=== PATIENT | male | born 1990 | race Caucasian/White ===

== ENCOUNTER 2017-07-24 02:47 | Emergency (ER) | payer SELFPAY ==
[~2017-07-24] VITALS: Ht 180.3 cm; Wt 84.4 kg
[2017-07-24] MEDS ORDERED: KETOROLAC 30 MG/ML VIAL. ONE (03:23)
[2017-07-24] MEDS ORDERED: KETOROLAC 30 MG/ML VIAL. IV ONE (04:00)
[2017-07-24] MEDS ORDERED: BENZONATATE 100 MG CAPSULE. PO ONE (04:00)
[2017-07-24] MEDS ORDERED: IV NORMAL SALINE 1,000ML 1,000 ML IV ONE (04:00)
[2017-07-24] MEDS ORDERED: ALBU8.5H8 INH (04:44)
[2017-07-24] MEDS ORDERED: BENZ100C PO (04:44)
--- NOTE | 2017-07-24 04:44 | PHYS DOC ---
Past History Past Medical History: Other Past Surgical History: No Surgical History Alcohol Use: None Drug Use: Marijuana Adult General Chief Complaint Chief Complaint: COUGH HPI HPI Patient is a 26 year old male who presents with cough. Patient reports 1 week history of dry cough. He reports nasal congestion, generalized headache, muscle pain with coughing only. He denies fevers/chills, vision changes, sore throat, chest pain, nausea, vomiting, abdominal pain, diarrhea. Previously healthy. Recently moved here from [place]. Nonsmoker. Review of Systems Review of Systems Constitutional: Denies fever or chills Eyes: Denies change in visual acuity HENT: Reports nasal congestion, denies sore throat Respiratory: Reports cough, denies shortness of breath Cardiovascular: Denies chest pain GI: Denies abdominal pain, nausea, vomiting, or diarrhea Musculoskeletal: Denies back pain or joint pain Integument: Denies rash Neurologic: Reports headache, denies focal weakness or sensory changes All other systems were reviewed and found to be within normal limits, except as documented in this note. Current Medications Current Medications Current Medications Medications (Trade) Dose Ordered Sig/Jason Start Time Stop Time Status Last Admin Dose Admin Benzonatate (Tessalon Perle) 100 mg 1X ONCE 07/24/17 04:00 07/24/17 04:01 DC 07/24/17 04:01 100 MG Ketorolac Tromethamine (Toradol) 30 mg 1X ONCE 07/24/17 04:00 07/24/17 04:01 DC 07/24/17 04:01 30 MG Sodium Chloride 1,000 ml @ 1,000 mls/hr 1X ONCE 07/24/17 04:00 07/24/17 04:59 07/24/17 04:01 1,000 MLS/HR Allergies Allergies Allergies Coded Allergies Type Severity Reaction Last Updated Verified No Known Drug Allergies 07/24/17 No Physical Exam Physical Exam Constitutional: Well developed, well nourished, no acute distress, non-toxic appearance. HENT: Normocephalic, atraumatic, bilateral external ears normal, oropharynx moist, no tonsillar enlargement or exudate, nose normal. Eyes: conjunctiva normal, no discharge. Neck: supple, no stridor. no meningismus Cardiovascular: tachycardic, regular, no murmurs, no edema. Lungs & Thorax: LCTAB, no wheezing, no respiratory distress. Abdomen: soft, nontender, nondistended. Skin: Warm, dry, no erythema, no rash. Back: No tenderness. Extremities: No tenderness, no edema. no calf tenderness or swelling. Neurologic: Alert and oriented X 3, no focal deficits noted. Psychologic: Affect normal, judgement normal, mood normal. Current Patient Data Vital Signs Vital Signs Date Time Temp Pulse Resp B/P (MAP) Pulse Ox O2 Delivery O2 Flow Rate FiO2 07/24/17 02:47 98.8 109 20 96 Room Air EKG EKG [] Radiology/Procedures Radiology/Procedures [] Course & Med Decision Making Course & Med Decision Making Pertinent Labs and Imaging studies reviewed. (See chart for details) The patient presents with cough. Oxygen saturation normal, afebrile, lungs are clear on exam. Mildly tachycardic upon arrival. Offered CXR & IV fluids. The patient states he doesn't want x-ray but is willing to receive fluids & prescriptions for meds for supportive care. With duration of cough, CXR not inappropriate, but overall suspect viral URI with mild dehydration rather than pneumonia at this time. Patient received 1L NS & heart rate improved to 80s, gave prescriptions for albuterol & tessalon perles. Recommend rest, hydration, tylenol/ibuprofen for pain or fever, try mucinex, use humidifier, follow up with PCP if not improving in 2-3 days. Come back for high fever, severe shortness of breath or chest pain, uncontrolled vomiting, any otherwise worsening condition. Discharged home in stable & improved condition. [] Dragon Disclaimer Dragon Disclaimer This electronic medical record was generated, in whole or in part, using a voice recognition dictation system. Departure Departure: Impression: Primary Impression: Upper respiratory infection Disposition: HOME, SELF-CARE Condition: STABLE Referrals: PCP,NO (PCP) Patient Instructions: Upper Respiratory Infection, Adult, [id number] Additional Instructions: You were seen in the emergency department today for upper respiratory infection. We offered chest x-ray to evaluate for pneumonia which you preferred not to have. Please rest, drink fluids to stay hydrated, take tylenol or ibuprofen for pain/fever, continue mucinex, try albuterol inhaler & tessalon perles for cough, use a humidifier. Follow up with a primary care doctor if not improving in 2-3 days. Viral cough may last up to 3 weeks. Come back for high fever, severe pain, uncontrolled vomiting, severe shortness of breath, any otherwise worsening condition. Scripts Benzonatate (TESSALON PERLE) 100 Mg Capsule 1 CAP PO TID, #21 CAP Prov: MONIKA ARAGON MD 07/24/17 Albuterol Sulfate (PROAIR HFA INHALER) 8.5 Gm Hfa.aer.ad 1 PUFF INH PRN Q6HRS Y for SHORTNESS OF BREATH, #1 INHALER 0 Refills Prov: MONIKA ARAGON MD 07/24/17 MONIKA ARAGON MD Jul 24, 2017 04:44
[2017-07-24 04:48] VITALS: BP 129/67
== END 2017-07-24 04:53 | disposition home or self-care (01) ==
LOC: ER 02:47
DX: J06.9 Acute upper respiratory infection, unspecified (principal); F12.10 Cannabis abuse, uncomplicated
CPT/HCPCS: 96361; 96374; 99284; J1885; J7030

== ENCOUNTER 2017-08-17 03:35 | Emergency (ER) | payer SELFPAY ==
[~2017-08-17] VITALS: Ht 180.3 cm; Wt 80.4 kg
[~2017-08-17 03:35] MED LIST: ALBU8.5H8 INH; BENZ100C PO
--- NOTE | 2017-08-17 03:57 | ED.ADGEN ---
Past History Past Medical History: Anxiety, Bipolar, Other Past Surgical History: No Surgical History Alcohol Use: None Drug Use: Marijuana Adult General Chief Complaint Chief Complaint "... I just did a line of meth.. and have had chest pain constant.. I did about $10.00 worth about 2 hours ago...I keep going back to using.. I just can't quit.. I ve been of up 5 days... but it is everywhere here in [place]... I moved up here from [place] to try get away from it .. but it is even worse here... " HPI HPI Patient is a 27 year old male Drug Response Dx. who presents with central chest pain after smoking line of meth. Pain has been constant and had periodic coughing spasm. Pt. here two weeks ago for similar presentation and was dx. as bronchitis. Review of Systems Review of Systems Constitutional: Denies fever or chills [] Eyes: Denies change in visual acuity, redness, or eye pain [] HENT: Denies nasal congestion or sore throat [] Respiratory: Hx. cough and chest pain. Cardiovascular: No additional information not addressed in HPI [] GI: Denies abdominal pain, nausea, vomiting, bloody stools or diarrhea [] : Denies dysuria or hematuria [] Musculoskeletal: Denies back pain or joint pain [] Integument: Denies rash or skin lesions [] Neurologic: Denies headache, focal weakness or sensory changes [] Endocrine: Denies polyuria or polydipsia [] All other systems were reviewed and found to be within normal limits, except as documented in this note. Family History Family History Non-contributory Current Medications Current Medications Current Medications Medications (Trade) Dose Ordered Sig/Jason Start Time Stop Time Status Last Admin Dose Admin Aspirin (Children'S Aspirin) 324 mg 1X ONCE 08/17/17 04:15 08/17/17 04:16 DC 08/17/17 04:15 324 MG Sodium Chloride 1,000 ml @ 1,000 mls/hr Q1H 08/17/17 04:15 08/17/17 05:14 DC 08/17/17 04:15 1,000 MLS/HR Allergies Allergies Allergies Coded Allergies Type Severity Reaction Last Updated Verified No Known Drug Allergies 07/24/17 No Physical Exam Physical Exam Constitutional: in acute emotional distress, non-toxic appearance. [] HENT: Normocephalic, atraumatic, bilateral external ears normal, oropharynx moist, no oral exudates, nose mild injection. Eyes: PERRLA, EOMI, conjunctiva normal, no discharge. [] Neck: Normal range of motion, no tenderness, supple, no stridor. [] Cardiovascular:Heart rate regular rhythm, no murmur [] Lungs & Thorax: Bilateral breath sounds equal with scattered wheezes on auscultation [] Abdomen: Bowel sounds normal, soft, no tenderness, no masses, no pulsatile masses. [] Skin: Warm, dry, no erythema, no rash. [] Back: No tenderness, no CVA tenderness. [] Extremities: No tenderness, no cyanosis, no clubbing, ROM intact, no edema. [] Neurologic: Alert and oriented X 3, normal motor function, normal sensory function, no focal deficits noted. [] Psychologic: Affect anxious, judgement normal, mood normal. [] Current Patient Data Vital Signs Vital Signs Date Time Temp Pulse Resp B/P (MAP) Pulse Ox O2 Delivery O2 Flow Rate FiO2 08/17/17 05:20 91 16 94 08/17/17 04:59 119/64 (82) 08/17/17 03:45 98.1 08/17/17 03:45 Room Air Lab Results Laboratory Tests Test 08/17/17 03:45 08/17/17 03:58 08/17/17 06:00 White Blood Count 8.9 x10^3/uL (4.0-11.0) Red Blood Count 4.61 x10^6/uL (4.30-5.70) Hemoglobin 13.0 g/dL (13.0-17.5) Hematocrit 37.4 % (39.0-53.0) L Mean Corpuscular Volume 81 fL (79-100) Mean Corpuscular Hemoglobin 28 pg (25-35) Mean Corpuscular Hemoglobin Concent 35 g/dL (31-37) Red Cell Distribution Width 14.8 % (11.5-14.5) H Platelet Count 289 x10^3/uL (140-400) Neutrophils (%) (Auto) 43 % (31-73) Lymphocytes (%) (Auto) 47 % (24-48) Monocytes (%) (Auto) 7 % (0-9) Eosinophils (%) (Auto) 2 % (0-3) Basophils (%) (Auto) 1 % (0-3) Neutrophils # (Auto) 3.8 x10^3uL (1.8-7.7) Lymphocytes # (Auto) 4.2 x10^3/uL (1.0-4.8) Monocytes # (Auto) 0.6 x10^3/uL (0.0-1.1) Eosinophils # (Auto) 0.2 x10^3/uL (0.0-0.7) Basophils # (Auto) 0.1 x10^3/uL (0.0-0.2) Prothrombin Time 11.1 SEC (9.4-11.4) Prothrombin Time INR 1.1 (0.9-1.1) PTT 27 SEC (23-33) D-Dimer (Alia) 0.37 mg/L (0.00-0.50) Sodium Level 139 mmol/L (136-145) Potassium Level 3.8 mmol/L (3.5-5.1) Chloride Level 103 mmol/L (98-107) Carbon Dioxide Level 28 mmol/L (21-32) Anion Gap 8 (6-14) Blood Urea Nitrogen 7 mg/dL (8-26) L Creatinine 0.9 mg/dL (0.7-1.3) Estimated GFR (Cockcroft-Gault) 102.8 Glucose Level 109 mg/dL (70-99) H Calcium Level 8.7 mg/dL (8.5-10.1) Magnesium Level 2.3 mg/dL (1.8-2.4) Total Bilirubin 0.4 mg/dL (0.2-1.0) Direct Bilirubin 0.1 mg/dL (0.0-0.2) Aspartate Amino Transferase (AST) 41 U/L (15-37) H Alanine Aminotransferase (ALT) 83 U/L (16-63) H Alkaline Phosphatase 90 U/L (46-116) Creatine Kinase 87 U/L (39-308) Creatine Kinase MB (Mass) 0.5 ng/mL (0.0-3.6) Creatine Kinase MB Relative Index 0.6 % (0-4) Troponin I Quantitative < 0.017 ng/mL (0-0.055) KJ-Dmu-D-Type Natriuretic Peptide 15 pg/mL (0-124) Total Protein 7.4 g/dL (6.4-8.2) Albumin 3.7 g/dL (3.4-5.0) Lipase 146 U/L (73-393) Thyroid Stimulating Hormone (TSH) 1.617 uIU/mL (0.358-3.740) Hepatitis A IgM Antibody Negative (Negative) Hepatitis B Surface Antigen Negative (Negative) Hepatitis B Core IgM Antibody Negative (Negative) Hepatitis C Antibody <0.1 s/co ratio HIV (1&2) Antibody Non reactive (Non Reactive) Urine Opiates Screen Neg (NEG) Urine Methadone Screen Neg (NEG) Urine Barbiturates Neg (NEG) Urine Phencyclidine Screen Neg (NEG) Urine Amphetamine/Methamphetamine Pos (NEG) Urine Benzodiazepines Screen Neg (NEG) Urine Cocaine Screen Neg (NEG) Urine Cannabinoids Screen Neg (NEG) Urine Ethyl Alcohol Neg (NEG) Urine Collection Type Unknown Urine Color Yellow Urine Clarity Clear Urine pH 5.5 Urine Specific Finley 1.010 Urine Protein Neg (NEG-TRACE) Urine Glucose (UA) Neg mg/dL (NEG) Urine Ketones (Stick) Neg mg/dL (NEG) Urine Blood Neg (NEG) Urine Nitrite Neg (NEG) Urine Bilirubin Neg (NEG) Urine Urobilinogen Dipstick 0.2 mg/dL (0.2 mg/dL) Urine Leukocyte Esterase Neg (NEG) Urine RBC 0 /HPF (0-2) Urine WBC 0 /HPF (0-4) Urine Squamous Epithelial Cells Occ /LPF Urine Bacteria 0 /HPF (0-FEW) EKG EKG My interpretation EKG shows a sinus rhythm at 84 bpm. There is no findings acute STEMI with contralateral changes.[] Radiology/Procedures Radiology/Procedures My interpretation of chest x-ray shows no acute cardiopulmonary findings. Course & Med Decision Making Course & Med Decision Making Pertinent Labs and Imaging studies reviewed. (See chart for details) Patient encouraged to stop meth amphetamine use. Patient encouraged follow-up health center. Patient take daily aspirin. Patient advised stop smoking . Patient follow-up primary care. Patient return if any concerns. [] Final Impression Final Impression 1. Bronchitis 2. Reactive Air way- secondary smoking Meth 3. Hx. Bipolar Disorder[] 4. History of polysubstance abuse 5. Elevated LFTs Problems: Dragon Disclaimer Dragon Disclaimer This electronic medical record was generated, in whole or in part, using a voice recognition dictation system. SUKH IRENE MD Aug 17, 2017 03:57
[2017-08-17] MEDS ORDERED: IV NORMAL SALINE 1,000ML 1,000 ML IV SCH (04:15)
[2017-08-17] MEDS ORDERED: ASPIRIN 81 MG TAB.CHEW PO ONE (04:15)
[2017-08-17 04:38] LABS: BASO # 0.1 x10^3/uL (0.0-0.2); BASO % 1 % (0-3); EOS # 0.2 x10^3/uL (0.0-0.7); EOS % 2 % (0-3); HEMATOCRIT 37.4 % (39.0-53.0); LYMPH # 4.2 x10^3/uL (1.0-4.8); LYMPH % 47 % (24-48); MEAN CORPUSCULAR HEMOGLOBIN 28 pg (25-35); MEAN CORPUSCULAR HGB CONC 35 g/dL (31-37); MEAN CORPUSCULAR VOLUME 81 fL (79-100); MONO # 0.6 x10^3/uL (0.0-1.1); MONO % 7 % (0-9); NEUT # 3.8 x10^3uL (1.8-7.7); NEUT % 43 % (31-73); PLATELET COUNT 289 x10^3/uL (140-400); RED BLOOD COUNT 4.61 x10^6/uL (4.30-5.70); RED CELL DISTRIBUTION WIDTH 14.8 % (11.5-14.5); WHITE BLOOD COUNT 8.9 x10^3/uL (4.0-11.0)
[2017-08-17 04:59] VITALS: BP 119/64
[2017-08-17 05:07] LABS: ALBUMIN 3.7 g/dL (3.4-5.0); CALCIUM 8.7 mg/dL (8.5-10.1); CREATININE 0.9 mg/dL (0.7-1.3); DIRECT BILIRUBIN 0.1 mg/dL (0.0-0.2); GFR 102.8; MAGNESIUM 2.3 mg/dL (1.8-2.4); POTASSIUM 3.8 mmol/L (3.5-5.1); TOTAL BILIRUBIN 0.4 mg/dL (0.2-1.0); TOTAL PROTEIN 7.4 g/dL (6.4-8.2)
[2017-08-17 06:18] LABS: BARBITURATES NEG (NEG); BENZODIAZEPINES NEG (NEG); CANNABINOIDS NEG (NEG); COCAINE NEG (NEG); METHADONE NEG (NEG); OPIATES NEG (NEG); PHENCYCLIDINE NEG (NEG)
[2017-08-17 06:31] LABS: AMPHETAMINE/METHAMPHETAMINE POS (NEG)
[2017-08-17 06:34] LABS: BACTERIA,URINE 0 /HPF (0-FEW); BILIRUBIN,URINE NEG (NEG); CLARITY,URINE CLEAR; COLOR,URINE YELLOW; GLUCOSE,URINE NEG (NEG); NITRITE,URINE NEG (NEG); RBC,URINE 0 /HPF (0-2); SQUAMOUS EPITHELIAL CELL,UR OCC /LPF; UROBILINOGEN,URINE 0.2 mg/dL (0.2 mg/dL); WBC,URINE 0 /HPF (0-4)
--- NOTE | 2017-08-17 07:37 | RAD ---
EXAM: Chest, 2 views. HISTORY: Left-sided chest pain. COMPARISON: None. FINDINGS: Frontal and lateral views of the chest are obtained. There is no infiltrate, effusion or pneumothorax. The heart is normal in size. IMPRESSION: No acute pulmonary finding.
--- NOTE | 2017-08-17 13:30 | EKG ---
[address] [address] Test Date: 2017-08-17 Test Time: 03:56:25 Pat Name: ROSANA BANSAL Department: Room: Gender: M Rn Travel: CATINA : 1990 Requested By: SUKH IRENE Order Number: [id number] Reading MD: Arben Masters MD Measurements Intervals [place] Rate: 84 P: 59 MA: 160 QRS: 68 QRSD: 94 T: 36 QT: 348 QTc: 414 Interpretive Statements SINUS RHYTHM Electronically Signed On 08-25-2017 0:01:52 ZINC MINER BLASTING by Arben Masters MD
[2017-08-18 16:09] LABS: HCV ANTIBODY <0.1 s/co ratio (0.0-0.9); HEP A IGM ABDY Negative (Negative)
== END 2017-08-17 06:33 | disposition home or self-care (01) ==
LOC: ER 03:35
DX: J45.909 Unspecified asthma, uncomplicated (principal); F31.9 Bipolar disorder, unspecified; R79.89 Other specified abnormal findings of blood chemistry; F12.10 Cannabis abuse, uncomplicated; F19.10 Other psychoactive substance abuse, uncomplicated; F41.9 Anxiety disorder, unspecified; F15.90 Other stimulant use, unspecified, uncomplicated
CPT/HCPCS: 36415; 71046; 80048; 80074; 80076; 80307; 81001; 82553; 83690; 83735; 83880; 84443; 84484; 85025; 85379; 85610; 85730; 86703; 93005; 96360; 96361; 99285-25; G0479; J7030

== ENCOUNTER 2017-09-02 16:49 | Emergency (ER) | payer SELFPAY ==
[~2017-09-02] VITALS: Ht 180.3 cm; Wt 80.4 kg
[2017-09-02 16:49] VITALS: BP 143/79
--- NOTE | 2017-09-02 17:29 | PHYS DOC ---
General Chief Complaint: DRUG ABUSE Stated Complaint: DRUG ABUSE Time Seen by MD: 17:27 Source: patient, EMS Exam Limitations: no limitations Problems: History of Present Illness Initial Comments Patient is a 22-year-old male brought to the ED by EMS with report that he wanted to seek inpatient drug rehabilitation. EMS states the patient has history of methamphetamine abuse that he recently used and requested transport to the ED to arrange for inpatient drug rehabilitation. On arrival ED vital signs stable slightly hypertensive the patient is calm alert and cooperative. Patient states he's been using methamphetamine off and on since March of last year. States he uses nearly daily now and his last use was approximately 3 hours ago. He smokes denies IV drug use but does admit to high risk sexual behavior with unprotected intercourse and he offers that he is homosexual. He had an HIV test done here reportedly 2 weeks ago and he's been very anxious about those results. After talking with the patient he admits that the main reason he wanted to come was to get the results of his HIV test. It would also like information about the guidance Center as he plans to follow up there tomorrow morning. He denies any complaints currently other than regret regarding choices in the past to start smoking methamphetamine. He is greatly relieved to find that his HIV test was nonreactive. He denies any other complaints and requests discharge home without any workup. On my evaluation he is alert and oriented 3 and actually does not appear to be under the influence of any substances. Timing/Duration: other Severity: severe Modifying Factors: improves with other Associated Symptoms: denies symptoms Allergies: Coded Allergies: No Known Drug Allergies (Unverified , 07/24/17) Past Medical History Medical History: other (bipolar, anxiety) Surgical History: noncontributory Social History Smoker: less than 1 pack/day Alcohol: none Drugs: marijuana (methamphetamine) Review of Systems Constitutional: denies chills, denies fever EENTM: denies blurred vision, denies ear pain, denies mouth pain Respiratory: denies shortness of breath, denies wheezing Cardiovascular: denies chest pain, denies palpitations, denies syncope Gastrointestinal: denies abdominal pain, denies nausea, denies vomiting Genitourinary: denies discharge, denies dysuria Musculoskeletal: denies back pain, denies muscle pain, denies neck pain Psychiatric/Neurological: see HPI Immunological/Allergic: see HPI Physical Exam General Appearance: mild distress (patient on arrival regarding HIV result) Eyes: bilateral eye normal inspection, bilateral eye PERRL, bilateral eye EOMI Ear, Nose, Throat: hearing grossly normal, normal ENT inspection, normal pharynx Neck: full range of motion, supple Respiratory: normal breath sounds, no respiratory distress Cardiovascular: normal peripheral pulses, regular rate, rhythm Neurologic/Psychiatric: 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 He was advised to follow-up with for further testing as an outpatient. Guidance Center materials given. Patient intends to call someone to pick him up he continues to be alert and oriented 3 and aside from his past drug choices current judgment and insight appear to be intact. He exhibits UCAR capacity and although reportedly smoked methamphetamine 3 hours ago his heart rate is normal and he does not appear to be affected. I offered him a medical screening evaluation and advised we would call and see if we can find an inpatient rehabilitation facility patient declines stating he will follow-up with the guidance center. I discussed signs and symptoms to monitor as well as indications for urgent return to the department. I discussed methamphetamine abuse and adverse effects and need for cessation/rehabilitation. Patient's questions were answered to his satisfaction and he expressed agreement and understanding with the treatment plan. I stressed the importance of barrier protection with all sexual activity. Departure Time of Disposition: 17:27 Disposition: 01 HOME, SELF-CARE Diagnosis: anxiety, substance abuse, high risk sexual behavio Condition: STABLE Patient Instructions: Methamphetamine Abuse, Complications, Safe Sex Additional Instructions: Please review the patient education materials given by ED staff. Discontinue methamphetamine abuse. Barrier protection with all sexual activity. ED staff will provide you with information regarding the guidance center. They do have walk-in hours in the morning, it is advised that he show up approximately 30 minutes before they open to ensure you are seen that day. Follow-up with a doctor and return to the ED as needed. WILLIAM REESE DO Sep 02, 2017 17:29
== END 2017-09-02 17:30 | disposition home or self-care (01) ==
LOC: ER 16:49
DX: F15.10 Other stimulant abuse, uncomplicated (principal); F41.9 Anxiety disorder, unspecified; F31.9 Bipolar disorder, unspecified; F12.10 Cannabis abuse, uncomplicated; F17.200 Nicotine dependence, unspecified, uncomplicated; Z72.52 High risk homosexual behavior
CPT/HCPCS: 99281; 99283

== ENCOUNTER 2017-09-04 03:22 | Emergency (ER) | payer SELFPAY ==
[~2017-09-04] VITALS: Ht 180.3 cm; Wt 80.4 kg
[2017-09-04 03:25] VITALS: BP 152/85
--- NOTE | 2017-09-04 03:43 | PHYS DOC ---
Past History Past Medical History: Anxiety, Bipolar, Other Past Surgical History: No Surgical History Alcohol Use: None Drug Use: Marijuana, Methamphetamine Adult General Chief Complaint Chief Complaint: not feeling anything HPI HPI 27-year-old male patient states he doesn't feel any emotion that is not usual for him. He states he had stable vital signs and normal exam during his previous ER visit and was came by ambulance 2 days ago with the same problem and was discharged home with instruction to follow-up with [facility]. Patient denies suicidal and homicidal ideation and hallucination and states he uses methamphetamine every day. Review of Systems Review of Systems Constitutional: Denies fever or chills [] Eyes: Denies change in visual acuity, redness, or eye pain [] HENT: Denies nasal congestion or sore throat [] Respiratory: Denies cough or shortness of breath [] Cardiovascular: No additional information not addressed in HPI [] GI: Denies abdominal pain, nausea, vomiting, bloody stools or diarrhea [] : Denies dysuria or hematuria [] Musculoskeletal: Denies back pain or joint pain [] Integument: Denies rash or skin lesions [] Neurologic: Denies headache, focal weakness or sensory changes [] Endocrine: Denies polyuria or polydipsia [] All other systems were reviewed and found to be within normal limits, except as documented in this note. Allergies Allergies Allergies Coded Allergies Type Severity Reaction Last Updated Verified No Known Drug Allergies 07/24/17 No Physical Exam Physical Exam Constitutional: Well nourished, no acute distress, non-toxic appearance. [] HENT: Normocephalic, atraumatic, bilateral external ears normal, oropharynx moist, no oral exudates, nose normal. [] Eyes: PERRLA, EOMI, conjunctiva normal, no discharge. [] Neck: Normal range of motion, no tenderness, supple, no stridor. [] Cardiovascular:Heart rate regular rhythm, no murmur [] Lungs & Thorax: Bilateral breath sounds clear to auscultation [] Abdomen: Bowel sounds normal, soft, no tenderness, no masses, no pulsatile masses. [] Skin: Warm, dry, no erythema, no rash. [] Back: No tenderness, no CVA tenderness. [] Extremities: No tenderness, no cyanosis, no clubbing, ROM intact, no edema. [] Neurologic: Alert and oriented X 3, normal motor function, normal sensory function, no focal deficits noted. [] Psychologic: Not suicidal or homicidal EKG EKG [] Radiology/Procedures Radiology/Procedures [] Course & Med Decision Making Course & Med Decision Making Evaluation of patient in ER showed 27-year-old female patient presented to ER at 3:30 AM with complaining of not feeling any emotion. Patient denies suicidal and homicidal ideation or hallucination. Patient instructed to follow-up with guided Center and do not use methamphetamine. Dragon Disclaimer Dragon Disclaimer This electronic medical record was generated, in whole or in part, using a voice recognition dictation system. Departure Departure: Impression: Primary Impression: Methamphetamine abuse Additional Impression: Feared condition not demonstrated Disposition: 01 HOME, SELF-CARE Condition: STABLE Referrals: PCP,NO (PCP) Patient Instructions: Methamphetamine Abuse, Complications Additional Instructions: Follow up with guided Center Problem Qualifiers TARA PATEL MD Sep 04, 2017 03:43
== END 2017-09-04 03:47 | disposition home or self-care (01) ==
LOC: ER 03:22
DX: F15.10 Other stimulant abuse, uncomplicated (principal); F12.10 Cannabis abuse, uncomplicated; Z71.1 Person with feared health complaint in whom no diagnosis is made; F41.9 Anxiety disorder, unspecified; F31.9 Bipolar disorder, unspecified
CPT/HCPCS: 99281

== ENCOUNTER 2017-09-15 03:36 | Emergency (ER) | payer SELFPAY ==
[~2017-09-15] VITALS: Ht 180.3 cm; Wt 81.6 kg
[2017-09-15 03:44] VITALS: BP 143/88
[2017-09-15] MEDS ORDERED: 0.9 % SODIUM CHLORIDE 10 ML DISP.SYRIN. IV PRN (04:00)
[2017-09-15] MEDS ORDERED: ONDANSETRON PF 4 MG/2 ML VIAL. IV ONE (04:00)
[2017-09-15] MEDS ORDERED: IV NORMAL SALINE 1,000ML 1,000 ML IV SCH (04:00)
--- NOTE | 2017-09-15 04:01 | PHYS DOC ---
Past History Past Medical History: No Pertinent History Past Surgical History: No Surgical History Alcohol Use: None Drug Use: Marijuana, Methamphetamine Adult General Chief Complaint Chief Complaint: NAUSEA/VOMITING/DIARRHEA HPI HPI He is a pleasant otherwise healthy 27-year-old male who is self-proclaimed methamphetamine abuser who is wanting to be clean and sober. He was to go to [facility] to their facility as an outpatient but wants to go with a clear head and be off methamphetamines for at least a few days. He began 2 days ago and attempted to stop using his methamphetamines which he's been using since March 2017. He has some nausea and vomiting 4-5 episodes daily for last 2 days and some mild diarrhea and loose stools. He denies any fevers or chills. He believes that every time he tries to drink something he gets nauseated and will potentially vomit it up. He denies any chest pain, denies any shortness of breath, denies any fevers or chills. 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 Patient does occasionally smoke a cigar for cigarette and does not drink alcohol Review of Systems Review of Systems Constitutional: Denies fever or chills [] Eyes: Denies change in visual acuity, redness, or eye pain [] HENT: Denies nasal congestion or sore throat [] Respiratory: Denies cough or shortness of breath [] Cardiovascular: No additional information not addressed in HPI [] GI: Denies abdominal pain, positive for nausea and vomiting nonbilious nonbloody positive for diarrhea nonmucoid nonbloody : Denies dysuria or hematuria [] Musculoskeletal: Denies back pain or joint pain [] Integument: Denies rash or skin lesions [] Neurologic: Denies headache, focal weakness or sensory changes [] Endocrine: Denies polyuria or polydipsia [] All other systems were reviewed and found to be within normal limits, except as documented in this note. Allergies Allergies Allergies Coded Allergies Type Severity Reaction Last Updated Verified No Known Drug Allergies 07/24/17 No Physical Exam Physical Exam Of the vital signs recorded the chart at this time within normal limits Constitutional: Well developed, well nourished, no acute distress, non-toxic appearance. Patient is mildly anxious but appropriate no pallor erection no diaphoresis [] HENT: Normocephalic, atraumatic, bilateral external ears normal, oropharynx mildly dry with mild erythema but no tonsillar hypertrophy, no oral exudates, nose normal. [] Eyes: PERRLA, EOMI, conjunctiva normal, no discharge. [] Neck: Normal range of motion, no tenderness, supple, no stridor. [] Cardiovascular:Heart rate regular rhythm, no murmur [] Lungs & Thorax: Bilateral breath sounds clear to auscultation [] Abdomen: Hyperactive bowel sounds soft nontender nondistended guarding rebound or organomegaly. No masses or pulsatile masses Skin: Warm, dry, no erythema, no rash. [] Back: No tenderness, no CVA tenderness. [] Extremities: No tenderness, no cyanosis, no clubbing, ROM intact, no edema. [] Neurologic: Alert and oriented X 3, normal motor function, normal sensory function, no focal deficits noted. [] Psychologic: Patient is mildly anxious but appropriate Current Patient Data Vital Signs Vital Signs Date Time Temp Pulse Resp B/P (MAP) Pulse Ox O2 Delivery O2 Flow Rate FiO2 09/15/17 03:44 98.6 98 18 98 Room Air EKG EKG [] Radiology/Procedures Radiology/Procedures [] Course & Med Decision Making Course & Med Decision Making Pertinent Labs and Imaging studies reviewed. (See chart for details) []he presents with soft abdomen going through what he believes her withdrawals for amphetamine abuse. He denies use of cocaine or other IV drugs, denies use of alcohol. He has last used 48 hours ago he is not in somnolent or having any homicidal or suicidal ideations. He denies any visual auditory hallucinations. He just has nausea vomiting and loose stool. He denies any abdominal pain, denies any fevers or chills. Patient offered oral hydration after Zofran orally for would prefer to have an IV fluid bag given to him Patient is given IV fluid bag feels markedly better and actually would prefer to go. He is not given his urine sample he does not want to have any medications. We will offer him Zofran at discharge discharge: I've spoken with the patient and/or caregivers. I've explained the patient's condition, diagnosis and treatment plan based on information available to me at this time. I've answered the patient's and/or caregivers questions and addressed any concerns. The patient and/or caregivers have a good understanding the patient's diagnosis, condition and treatment plan as can be expected at this point. Vital signs have been stabilized. The patient's condition is stable for discharge from the emergency department. The patient will pursue further outpatient evaluation with her primary care provider or other designated consulting physician as outlined in the discharge instructions. Patient and/or caregivers are agreeable to this plan of care and follow-up instructions have been explained in detail. The patient and/or caregivers have received these instructions in written format and expressed understanding of these discharge instructions. The patient and her caregivers are aware that if any significant change in condition or worsening of symptoms should prompt him to immediately return to this of the closest emergency department. If an emergent department is not readily available I would encourage him to call 911. Dragon Disclaimer Dragon Disclaimer This electronic medical record was generated, in whole or in part, using a voice recognition dictation system. Departure Departure: Impression: Primary Impression: Nausea and vomiting Disposition: HOME, SELF-CARE Condition: STABLE Referrals: PCP,DERRICK (PCP) Patient Instructions: Nausea and Vomiting Additional Instructions: discharge: I've spoken with the patient and/or caregivers. I've explained the patient's condition, diagnosis and treatment plan based on information available to me at this time. I've answered the patient's and/or caregivers questions and addressed any concerns. The patient and/or caregivers have a good understanding the patient's diagnosis, condition and treatment plan as can be expected at this point. Vital signs have been stabilized. The patient's condition is stable for discharge from the emergency department. The patient will pursue further outpatient evaluation with her primary care provider or other designated consulting physician as outlined in the discharge instructions. Patient and/or caregivers are agreeable to this plan of care and follow-up instructions have been explained in detail. The patient and/or caregivers have received these instructions in written format and expressed understanding of these discharge instructions. The patient and her caregivers are aware that if any significant change in condition or worsening of symptoms should prompt him to immediately return to this of the closest emergency department. If an emergent department is not readily available I would encourage him to call 911. Scripts Ondansetron (ZOFRAN ODT) 4 Mg Tab.rapdis 1 TAB SL Q8HRS, #15 TAB Prov: MILO CRESPO MD 09/15/17 MILO CRESPO MD Sep 15, 2017 04:01
[2017-09-15 04:21] LABS: BASO % 1 % (0-3); EOS # 0.2 x10^3/uL (0.0-0.7); EOS % 2 % (0-3); HEMATOCRIT 40.1 % (39.0-53.0); HEMOGLOBIN 13.7 g/dL (13.0-17.5); LYMPH # 4.1 x10^3/uL (1.0-4.8); LYMPH % 45 % (24-48); MEAN CORPUSCULAR HEMOGLOBIN 27 pg (25-35); MEAN CORPUSCULAR HGB CONC 34 g/dL (31-37); MEAN CORPUSCULAR VOLUME 80 fL (79-100); MONO # 0.6 x10^3/uL (0.0-1.1); MONO % 7 % (0-9); NEUT # 4.2 x10^3uL (1.8-7.7); NEUT % 46 % (31-73); PLATELET COUNT 273 x10^3/uL (140-400); RED CELL DISTRIBUTION WIDTH 14.9 % (11.5-14.5); WHITE BLOOD COUNT 9.1 x10^3/uL (4.0-11.0)
[2017-09-15] MEDS ORDERED: ONDA4TAB10 SL (04:34)
[2017-09-15 04:35] LABS: ALBUMIN/GLOBULIN RATIO 1.1 (1.0-1.7); CALCIUM 8.7 mg/dL (8.5-10.1); CREATININE 0.7 mg/dL (0.7-1.3); GFR 137.4; POTASSIUM 3.5 mmol/L (3.5-5.1); TOTAL BILIRUBIN 0.5 mg/dL (0.2-1.0); TOTAL PROTEIN 7.5 g/dL (6.4-8.2)
== END 2017-09-15 04:48 | disposition home or self-care (01) ==
LOC: ER 03:36
DX: R11.2 Nausea with vomiting, unspecified (principal); R19.7 Diarrhea, unspecified; F15.10 Other stimulant abuse, uncomplicated; F12.10 Cannabis abuse, uncomplicated
CPT/HCPCS: 36415; 80053; 83690; 85025; 96360; 99284-25; J7030